=== PATIENT | male | born 1985 | race Caucasian/White ===

== ENCOUNTER 2019-05-06 22:49 | Emergency (ER) | payer SELFPAY ==
--- NOTE | 2019-05-06 23:05 | ER Document Report ---
ED Medical Screen (RME) - General Chief Complaint: ETOH Abuse Stated Complaint: ELEVATED BLOOD ALCOHOL Time Seen by Provider: 05/06/19 23:04 Notes: Patient is a 33-year-old male who presents to the emergency department to get clearance to go to [facility]. He was refused because his alcohol level was too high. Patient drinks 1/5 a day and also sixpack. He has been drinking for 3 years. Denies any pain. Exam: Smells of alcohol. I have greeted and performed a rapid initial assessment of this patient. A comprehensive ED assessment and evaluation of the patient, analysis of test results and completion of medical decision making process will be conducted by an additional ED providers. - Related Data Allergies/Adverse Reactions: No Known Allergies Allergy (Unverified 05/06/19 22:57) Physical Exam - Vital signs Vitals: Temp Pulse Resp BP Pulse Ox 98.3 F 96 17 146/102 H 97 05/06/19 22:56 05/06/19 22:56 05/06/19 22:56 05/06/19 22:56 05/06/19 22:56 Course - Vital Signs Vital signs: Temp Pulse Resp BP Pulse Ox 98.3 F 96 17 146/102 H 97 05/06/19 22:56 05/06/19 22:56 05/06/19 22:56 05/06/19 22:56 05/06/19 22:56
[2019-05-07 00:04] LABS: ABSOLUTE BASOPHILS # (AUTO) 0.1 10^3/uL (0.0-0.2); ABSOLUTE EOSINOPHILS # (AUTO) 0.3 10^3/uL (0.0-0.6); ABSOLUTE LYMPHOCYTES (AUTO) 2.4 10^3/uL (0.5-4.7); ABSOLUTE MONOCYTES (AUTO) 0.5 10^3/uL (0.1-1.4); ABSOLUTE NEUT (AUTO) 5.1 10^3/uL (1.7-8.2); BASOPHILS % (AUTO) 0.7 % (0-2); HEMATOCRIT 44.5 % (37.9-51.0); HEMOGLOBIN 15.3 g/dL (13.5-17.0); LYMPHOCYTES % (AUTO) 28.5 % (13-45); MEAN CORPUSCULAR HEMOGLOBIN 31.9 pg (27.0-33.4); MEAN CORPUSCULAR HGB CONC 34.3 g/dL (32.0-36.0); MEAN CORPUSCULAR VOLUME 93 fl (80-97); MONOCYTES % (AUTO) 5.9 % (3-13); PLATELET COUNT 306 10^3/uL (150-450); RED BLOOD COUNT 4.79 10^6/uL (4.35-5.55); RED CELL DISTRIBUTION WIDTH 13.3 % (11.5-14.0); SEGMENTED NEUTROPHILS % (AUTO) 61.9 % (42-78); TOTAL CELLS COUNTED % (AUTO) 100 %; WHITE BLOOD COUNT 8.3 10^3/uL (4.0-10.5)
[2019-05-07 00:11] LABS: APPEARANCE,URINE CLEAR; BILIRUBIN,URINE NEGATIVE (NEGATIVE); COLOR,URINE STRAW; GLUCOSE, URINE NEGATIVE (NEGATIVE); KETONES,URINE NEGATIVE (NEGATIVE); LEUKOCYTE ESTERASE,URINE NEGATIVE (NEGATIVE); NITRITE,URINE NEGATIVE (NEGATIVE); PROTEIN,URINE NEGATIVE (NEGATIVE); URINE SPECIFIC GRAVITY 1.004; UROBILINOGEN,URINE NEGATIVE mg/dL (<2.0)
[2019-05-07 00:16] LABS: ALBUMIN 5.1 g/dL (3.5-5.0); ALKALINE PHOSPHATASE 66 U/L (38-126); ANION GAP 12 (5-19); ASPARTATE AMINO TRANSFERASE 35 U/L (17-59); BILIRUBIN,DIRECT 0.1 mg/dL (0.0-0.4); BILIRUBIN,TOTAL 0.3 mg/dL (0.2-1.3); BLOOD UREA NITROGEN 8 mg/dL (7-20); CALCIUM 9.2 mg/dL (8.4-10.2); CARBON DIOXIDE 26 mmol/L (22-30); CHLORIDE 97 mmol/L (98-107); GLUCOSE 101 mg/dL (75-110); POTASSIUM 4.2 mmol/L (3.6-5.0); TOTAL PROTEIN 8.4 g/dL (6.3-8.2)
[2019-05-07 00:19] LABS: URINE AMPHETAMINES SCREEN NEGATIVE; URINE BARBITURATES SCREEN NEGATIVE; URINE BENZODIAZEPINES SCREEN NEGATIVE; URINE COCAINE SCREEN NEGATIVE; URINE METHADONE SCREEN NEGATIVE; URINE PHENCYCLIDINE SCREEN NEGATIVE
[2019-05-07 00:21] LABS: URINE MARIJUANA (THC) SCREEN UNCONFIRMED POSITIVE
[2019-05-07 00:24] LABS: ACETAMINOPHEN < 10 ug/mL (10-30); SALICYLATE < 1.0 mg/dL (2.0-20.0)
[2019-05-07 00:28] LABS: ALCOHOL 351 mg/dL (NONE DETECTED)
--- NOTE | 2019-05-07 01:05 | ER Document Report ---
ED General - General Chief Complaint: ETOH Abuse Stated Complaint: ELEVATED BLOOD ALCOHOL Time Seen by Provider: 05/06/19 23:04 - HPI Notes: Patient is a 33-year-old male with a history of alcohol dependence who presents emergency department for evaluation. He was treated at [facility]. He wants to go back there. He was seen there and his blood alcohol level is too high. He had been seen, was not drinking for a few months, then his friend . This triggered a new drinking binge, and he has been drinking daily for 6 to 8 weeks. He states he drinks 1/5 of whiskey every day. He has a history of withdrawals per him. He admits to occasional marijuana use as well. He denies any suicidal or homicidal ideation. No visual, tactile, or auditory hallucination. He does state that he feels anxious right now. - Related Data Allergies/Adverse Reactions: No Known Allergies Allergy (Unverified 05/06/19 22:57) Past Medical History - General Information source: Patient, Friend - Social History Smoking Status: Current Every Day Smoker Frequency of alcohol use: Heavy Drug Abuse: Marijuana Family History: Reviewed & Not Pertinent Patient has suicidal ideation: No Patient has homicidal ideation: No Psychiatric Medical History: Reports: Other Review of Systems - Review of Systems Constitutional: No symptoms reported EENT: No symptoms reported Cardiovascular: No symptoms reported Respiratory: No symptoms reported Gastrointestinal: No symptoms reported Genitourinary: No symptoms reported Musculoskeletal: No symptoms reported Skin: No symptoms reported Neurological/Psychological: No symptoms reported Physical Exam - Vital signs Vitals: Temp Pulse Resp BP Pulse Ox 98.3 F 96 17 146/102 H 97 05/06/19 22:56 05/06/19 22:56 05/06/19 22:56 05/06/19 22:56 05/06/19 22:56 - Notes Notes: This is a 33-year-old male who appears his stated age in no acute distress. He is mildly anxious in appearance, but his tremor only happens when he is not speaking. He smells strongly of alcohol. Vital signs reviewed, please refer to chart. Head is normocephalic, atraumatic. Pupils equal round, reactive to light. Neck is supple without meningismus. Heart is regular rate and rhythm. Lungs are clear to auscultation bilaterally. Abdomen is soft, nontender, normoactive bowel sounds throughout. Extremities without cyanosis, clubbing. Posterior calves are nontender. Peripheral pulses are equal. Skin is warm and dry. Patient is awake, alert, neurological exam is nonfocal. Course - Re-evaluation Re-evalutation: 05/07/19 01:03 Patient presents emergency department for evaluation. Initial laboratory vesication's as ordered through triage. The patient's blood alcohol level was much too high to be excepted at [facility]. It needs to be below 200 to be accepted to [facility]. Patient is currently on the monitor. His heart rate is in the 80s. His blood pressure is 109/73. I do not think that he is in active withdrawal at this point. We will continue to monitor patient. 05/07/19 02:30 I went back and reevaluate the patient. He is resting comfortably. His heart rates in the 70s. His blood pressure is 113/71. By 8 AM I expect that his blood alcohol should be below 200. This was communicated to nursing, and an order was placed for blood alcohol to be repeated 8 AM. I did put in an as needed order for 2 mg of IM Ativan should he present with any symptoms concerning for withdrawal. I do not suspect this strongly, as patient has only been binge drinking again recently for the last several weeks. Once patient's blood alcohol level is below 200, he is medically cleared to go to [facility]. We will print out discharge papers anticipating a blood alcohol level acceptable for their facility. - Vital Signs Vital signs: Temp Pulse Resp BP Pulse Ox 98.3 F 96 14 109/73 97 05/06/19 22:56 05/06/19 22:56 05/07/19 01:01 05/07/19 01:00 05/06/19 22:56 - Laboratory Result Diagrams: 05/06/19 23:43 05/06/19 23:43 Laboratory results interpreted by me: 05/06/19 23:43 Sodium 135.2 L Chloride 97 L Total Protein 8.4 H Albumin 5.1 H Salicylates < 1.0 L Acetaminophen < 10 L Serum Alcohol 351 H* Discharge - Discharge Clinical Impression: Alcohol abuse Alcohol intoxication Qualifiers: Complication of substance-induced condition: uncomplicated Qualified Code(s): F10.920 - Alcohol use, unspecified with intoxication, uncomplicated Alcohol dependence Qualifiers: Substance use status: uncomplicated Qualified Code(s): F10.20 - Alcohol dependence, uncomplicated Condition: Stable Disposition: OTHER Instructions: Chronic Alcoholism ([facility]), Acute Alcohol Intoxication ([facility]) Additional Instructions: You have been medically cleared. You can present to [facility] for further alcohol detox and treatment. Return to the ED with worsening or new concerning symptoms of any sort.
[2019-05-07] MEDS ORDERED: LORAZEPAM INJ 2 MG/1 ML VIAL IM PRN (02:29)
[2019-05-07 09:20] VITALS: BP 123/63
--- NOTE | 2019-05-07 14:31 | EKG REPORT ---
SEVERITY:- NORMAL ECG - SINUS RHYTHM ST ELEV, PROBABLE NORMAL EARLY REPOL PATTERN : Confirmed by: Dayna Bryson MD 07-May-2019 14:29:42
== END 2019-05-07 09:25 | disposition other institution (70) ==
LOC: ER 05-07 06:48
DX: F10.920 Alcohol use, unspecified with intoxication, uncomplicated (principal); F17.200 Nicotine dependence, unspecified, uncomplicated; Y90.8 Blood alcohol level of 240 mg/100 ml or more
CPT/HCPCS: 36415; 80053; 80307; 81001; 85025; 93005; 93010; 99284